=== PATIENT | female | born 2000 | race Caucasian/White ===

== ENCOUNTER 2022-02-06 12:02 | Emergency (ER) | payer BC, SELFPAY ==
[2022-02-06 12:22] VITALS: BP 116/74; PULSE 105; RESP 20; TEMP 37.2; O2SAT 100
--- NOTE | 2022-02-06 12:28 | ED.EAR ---
HPI - Ear Problem General Chief complaint: Ear Stated complaint: Ear Pain Time Seen by Provider: 02/06/22 12:28 Source: patient Mode of arrival: ambulatory Limitations: no limitations History of Present Illness HPI Narrative: 21-year-old female presented for complaint of right ear pain worsening over the past 2 days. Drainage started last night. Endorses headache, tinnitus and mild dizziness. She states she has had sinus pressure and congestion over the past 4 days. Has taken [id number] Aleve cold and sinus with minimal relief. History of ear infections and tubes as a child. MD Complaint: ear pain Review of Systems Review of Systems: CONSTITUTIONAL: Denies malaise, chills, or fever. EYES: Denies visual changes, redness, or discharge. ENT: Reports rhinorrhea, congestion, sinus pain, ear pain CARDIOVASCULAR: Denies chest pain, palpitations, or edema. RESPIRATORY: Denies cough or dyspnea. GASTROINTESTINAL: Denies abdominal pain, nausea, vomiting, diarrhea SKIN: Denies rash or itching. MUSCULOSKELETAL: Denies myalgia. NEUROLOGIC: Denies headache. All systems reviewed & are unremarkable except as noted in HPI and below PMFSH Comments At time of signature, agree with nursing past medical, surgical, social and family history. There is no relevant family history pertinent to the presenting complaint Exam Narrative: GENERAL: Well-appearing, well-nourished, and in no acute distress. HEAD: Normocephalic EYES: PERRLA, conjunctivae clear ENT: Nares clear. Mucous membranes moist. Bilateral ear canals erythematous, right TM bulging, dull and red. no tragal tenderness. Oropharynx erythematous without lesions. Tonsils not enlarged and without exudate, no drooling, no hoarseness, no trismus, uvula midline. NECK: Supple. No lymphadenopathy CHEST: Clear to auscultation, breath sounds equal. No wheezing, rhonchi, rales, or stridor. No respiratory distress, speaks in full sentences. HEART: Regular rate and rhythm. No murmur heard. SKIN: Warm, dry, no rash. NEURO: Alert and oriented x3. PSYCH: Normal mood and affect Course Course Emergency Course: Patient is aware of diagnosis, understands and agrees to treatment plan. Anticipatory guidance given. Patient agrees to follow-up as directed and is aware of reasons to seek care at the emergency department. Portions of this record may have been created with voice recognition software Level of Care: Express Care Visit Vital Signs Vital signs: Vital Signs Temperature 98.9 F 02/06/22 12:22 Pulse Rate 105 H 02/06/22 12:22 Respiratory Rate 20 02/06/22 12:22 Blood Pressure 116/74 02/06/22 12:22 Pulse Oximetry 100 02/06/22 12:22 Temperature 98.9 F 02/06/22 12:22 Pulse Rate 105 H 02/06/22 12:22 Respiratory Rate 20 02/06/22 12:22 Blood Pressure 116/74 02/06/22 12:22 Pulse Oximetry 100 02/06/22 12:22 Reviewed Medical Decision Making MDM Narrative Medical decision making narrative: Exam findings c/w OM, no acute concerns or changes; patient is non-toxic appearing and is in no distress. Patient is appropriate for outpatient treatment and follow-up. Differential Diagnosis Differential Diagnosis: Differential diagnosis considered: Coronavirus, strep pharyngitis, allergic rhinitis, upper respiratory tract infection, sinusitis, rhinosinusitis, nasopharyngitis, viral pharyngitis, otitis media, otitis externa, eustachian tube dysfunction, foreign body, cerumen impaction. Vital Signs Vital Signs: Vital Signs Temperature 98.9 F 02/06/22 12:22 Pulse Rate 105 H 02/06/22 12:22 Respiratory Rate 20 02/06/22 12:22 Blood Pressure 116/74 02/06/22 12:22 Pulse Oximetry 100 02/06/22 12:22 Temperature 98.9 F 02/06/22 12:22 Pulse Rate 105 H 02/06/22 12:22 Respiratory Rate 20 02/06/22 12:22 Blood Pressure 116/74 02/06/22 12:22 Pulse Oximetry 100 02/06/22 12:22 Discharge Plan Discharge Clinical Impression: Otitis media Qualifiers: Otit
== END 2022-02-06 12:43 | disposition home or self-care (01) ==
PROVIDERS: Emergency Provider Nurse Practitioner Family; PCP Nurse Practitioner Family
DX: H66.001 Acute suppurative otitis media without spontaneous rupture of ear drum, right ear (principal)
CPT/HCPCS: 99213; G0463

== ENCOUNTER 2024-08-11 16:13 | Emergency (ER) | payer BC, SELFPAY ==
[2024-08-11 16:17] VITALS: BP 133/78; PULSE 100; RESP 20; TEMP 36.9; O2SAT 100
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
[2024-08-13 14:27] LABS: EDSTREPNEGPOS1 Negative (Negative)
== END 2024-08-11 17:16 | disposition home or self-care (01) ==
PROVIDERS: Emergency Provider Registered Nurse; PCP Nurse Practitioner Family
DX: H65.02 Acute serous otitis media, left ear (principal)
CPT/HCPCS: 87081; 87880; 99213; G0463